=== PATIENT | male | born 2000 | race Caucasian/White ===

== ENCOUNTER 2022-09-08 16:30 | Emergency (ER) | payer BC ==
[~2022-09-08] VITALS: Ht 172.7 cm; Wt 68.2 kg
[2022-09-08 16:51] VITALS: TEMP 98.8
[2022-09-08] MEDS ORDERED: CEPHALEXIN500 M1 PO (19:53)
[2022-09-08 20:07] VITALS: BP 114/77; PULSE 109
== END 2022-09-08 20:07 | disposition home or self-care (01) ==
LOC: COL.ER 16:30
DX: S71.111A Laceration without foreign body, right thigh, initial encounter (principal); Z28.310 Unvaccinated for COVID-19; Z23 Encounter for immunization; X58.XXXA Exposure to other specified factors, initial encounter